=== PATIENT | male | born 1990 | race Caucasian/White ===

== ENCOUNTER 2022-04-27 23:51 | Emergency (ER) | payer MEDICAID ==
[~2022-04-27] VITALS: Ht 182.9 cm; Wt 76.7 kg
[2022-04-28 00:24] VITALS: BP 124/70
[2022-04-28] MEDS ORDERED: CEPH-585 PO (00:58)
== END 2022-04-28 01:18 | disposition home or self-care (01) ==
LOC: ER 23:54
DX: H60.11 Cellulitis of right external ear (principal)
CPT/HCPCS: 99283

== ENCOUNTER 2023-02-01 15:16 | Emergency (ER) | payer MEDICAID ==
[~2023-02-01] VITALS: Ht 183.5 cm; Wt 68.6 kg
[2023-02-01 15:20] VITALS: BP 122/73; PULSE 67; TEMP 97.4; O2SAT 97
[2023-02-01] MEDS ORDERED: NAPR-1154 PO (17:09)
[2023-02-01] MEDS ORDERED: ketorolac tromethamine 15mg/ml inj. IM ONE (17:10)
[2023-02-01 17:18] VITALS: RESP 17
== END 2023-02-01 17:24 | disposition home or self-care (01) ==
LOC: ER 15:17
DX: S63.615A Unspecified sprain of left ring finger, initial encounter (principal); X58.XXXA Exposure to other specified factors, initial encounter; Y93.89 Activity, other specified; Y92.89 Other specified places as the place of occurrence of the external cause; Y99.8 Other external cause status
CPT/HCPCS: 73140; 96372; 99284; J1885